=== PATIENT | male | born 1985 | race Caucasian/White ===

== ENCOUNTER 2023-10-03 02:01 | Emergency (ER) | payer OTHER ==
[2023-10-03] MEDS ORDERED: methylPREDNISolone Sod Succ/PF 125 MG/2 ML VIAL ONE (02:27)
[2023-10-03] MEDS ORDERED: valACYclovir 500 MG TAB PO SCH (02:30)
== END 2023-10-03 02:55 | disposition home or self-care (01) ==
LOC: MADERS 02:01
DX: L30.9 Dermatitis, unspecified (principal)
CPT/HCPCS: 96372; 99282; J2930

== ENCOUNTER 2023-12-29 22:14 | Emergency (ER) | payer OTHER ==
[2023-12-29] MEDS ORDERED: Pantoprazole DR 40 MG TAB ONE (22:38)
[2023-12-29] MEDS ORDERED: Lidocaine Viscous Sol 2% 15 ml UD Cup ONE (22:39)
[2023-12-29] MEDS ORDERED: Aspirin Chewable 81 MG TAB ONE (22:39)
[2023-12-29] MEDS ORDERED: Mag-Al 1200 mg/1200 mg/30 ML UDCUP ONE (22:39)
[2023-12-29] MEDS ORDERED: Lorazepam 1 MG TAB ONE (22:45)
[2023-12-29 23:08] LABS: #Basophils 0.2 thou/uL (0.0-0.2); #Eosinphils 2.8 thou/uL (0.0-0.7); #Lymphocytes 2.2 thou/uL (1.20-3.40); #Monocytes 0.8 thou/uL (0.11-0.59); #Neutrophils 5.6 thou/uL (1.40-6.50); %Basophils 1.4 % (0.0-1.0); %Eosinophils 24.4 % (0.0-10.0); %Lymphocytes 19.2 % (21.0-51.0); %Monocytes 6.6 % (0.0-10.0); %Neutrophils 48.4 % (42.0-75.0); Hematocrit 44.3 % (42.0-52.0); Hemoglobin 13.7 g/dL (14.0-18.0); Mean Corpuscular Hemoglobin 27.7 pg (27.0-31.0); Mean Corpuscular Volume 89.5 fl (78.0-98.0); Mean Platelet Volume 7.2 fL (7.4-10.4); Platelet Count 263 10x3/uL (130-400); RBC Distribution Width 12.2 % (11.5-14.5); Red Blood Cell (RBC) Count 4.95 mill/uL (4.70-6.10); White Blood Cell (WBC) Count 11.5 10x3/uL (4.8-10.8)
[2023-12-29] MEDS ORDERED: Dicyclomine 20 MG/2 ML VIAL ONE (23:23)
[2023-12-29 23:28] LABS: Troponin I Less than 0.010 ng/mL (< 0.028)
[2023-12-29 23:33] LABS: ALT (SGPT) 26 U/L (8-55); AST (SGOT) 24 U/L (5-34); Albumin 4.1 g/dL (3.5-5.0); Alkaline Phosphatase 62 U/L (40-110); Anion Gap 15 mmol/L (10-20); BUN (Urea Nitrogen) 13 mg/dL (8.9-20.6); Bilirubin, Total 1.1 mg/dL (0.2-1.2); Calc. Creatinine Clearance 0 mL/min (70-130); Calcium 9.1 mg/dL (7.8-10.44); Carbon Dioxide 25 mmol/L (22-29); Chloride 105 mmol/L (98-107); Estimated GFR 83; Globulin 2.6 g/dL (2.4-3.5); Glucose 107 mg/dL (70-105); Lipase 19 U/L (8-78); Potassium 3.9 mmol/L (3.5-5.1); Protein, Total 6.7 g/dL (6.0-8.3); Sodium 141 mmol/L (136-145)
[2023-12-30] MEDS ORDERED: Mag-Al 1200 mg/1200 mg/30 ML UDCUP ONE (00:02)
[2023-12-30] MEDS ORDERED: Lidocaine Viscous Sol 2% 15 ml UD Cup ONE (00:02)
== END 2023-12-30 00:14 | disposition home or self-care (01) ==
LOC: MADERS 22:14
DX: K29.70 Gastritis, unspecified, without bleeding (principal)
CPT/HCPCS: 36415; 71045; 80053; 83690; 84484; 85025; 93005; 96372